=== PATIENT | male | born 1985 | race Caucasian/White ===

== ENCOUNTER → 2016-06-01 | Outpatient (CLI) | payer BC ==
[~2016-06-01] MED LIST: ATARAX PO; AUGMENTIN PO; BACLOFEN10 MG; BENADRYL25 M3; BENZONATATE PO; CYMBALTA30 MG PO; FLOXIN OTIC5 M1 OS; MEDROL DOSEPAK4 MG DOB; MOBIC; MOBIC7.5 MG/5 M; PREDNISONE50 MG PO; VOLTAREN75 MG PO; ZITHROMAX PO
--- NOTE | ~2016-06-01 | CT2 ---
[facility] A Service of [facility] RADIOLOGY TEXT RESULTS PATIENT: STEPHANIE SOSA LOCATION: [facility] : 81 UNIT #: [id number] AGE: [address]: LARRY FINE MD SEX: M ORDER DR: [id number] [place] [id number] O MR#: [id number] Acc #: [id number] NAME: STEPHANIE SOSA : 1985 SEX: M STUDY DATE/TIME: 06/01/2016 13:06 UNIT: [facility] ROOM: STUDY DESCRIPTION: CT Abd and Pelv W Cont Attending Physician: Barry Fine M.D. Referring Physician: Barry Fine M.D. Ordering Physician: Barry Fine M.D. Primary Care Physician: Barry Fine M.D. MEDICAL IMAGING REPORT This report is preliminary unless electronic signature is present. EXAM CT abdomen and pelvis, 06/01 INDICATION Nausea for 3 weeks with 20 pound weight loss. Right upper quadrant right and flank pain over that time as well. TECHNIQUE Axial images were obtained through the abdomen and pelvis following oral and IV contrast administration. Multiplanar reformats were obtained. This CT exam was performed with one or more of the following radiation dose reduction techniques: automatic exposure control, adjustment of mA and/or kV according to patient size, and iterative reconstruction. COMPARISON 07/07/2005 FINDINGS ABDOMEN: Many images through the abdomen were repeated due to patient motion. Lung bases are clear. Gallbladder is normal. There is no biliary obstruction. Solid organs are normal. The GI tract is normal. No free fluid or adenopathy is identified. PELVIS: The appendix is normal. The remainder of the lower GI tract is normal as well allowing for some motion. Urinary bladder is unremarkable. No free fluid. IMPRESSION 1. Motion degraded exam, but no acute abnormalities are identified. 2. GI tract, including the appendix, is normal. 3. Normal nonobstructed kidneys. [facility] A Service of [facility] RADIOLOGY TEXT RESULTS PATIENT: STEPHANIE SOSA LOCATION: [facility] : 81 UNIT #: [id number] AGE: [address]: LARRY FINE MD SEX: M ORDER DR: Dictated by... Hugh Chapman Jr., M.D. THIS IS AN ELECTRONICALLY VERIFIED REPORT Hugh Chapman Jr., M.D. at 06/01/2016 4:53 PM RUSTY/[place] TD: 06/01/2016 14:47 JOB #: [id number] MEDICAL IMAGING REPORT Page 1 of 1
== END | disposition home or self-care (01) ==
LOC: SCT 12:04
DX: R10.9 Unspecified abdominal pain (principal)
CPT/HCPCS: 74177; Q9967